=== PATIENT | female | born 1955 | race Caucasian/White ===

== ENCOUNTER 2017-03-28 08:30 | Inpatient (IN) | payer MEDICAID ==
[~2017-03-28 08:30] MED LIST: Cyanocobalamin (Vitamin B12) 1,000 MCG/ML SDV IM ONE; Glycopyrrolate 0.2 MG/ML 2 ML SYRINGE IVPUSH ONE; Lactated Ringers 1,000 ML IV SCH; Midazolam 1 MG/ML 2 ML SDV ONE; Propofol 200 MG/20 ML SDV ONE; fentaNYL 100 MCG/2 ML SDV ONE
[2017-03-28] MEDS ORDERED: MVI, Adult with Vitamin K 10 ML, Thiamine 200 MG, Chromium/Copper/Mang/Selen/Zn 1 ML in... IV ONE ×4 (08:45)
[2017-03-28] MEDS ORDERED: Ketorolac 60 MG/2 ML SDV ONE (09:41)
[2017-04-03] MEDS ORDERED: Propofol 200 MG/20 ML SDV ONE (11:25)
[2017-04-03] MEDS ORDERED: fentaNYL 100 MCG/2 ML SDV ONE (11:26)
[2017-04-03] MEDS ORDERED: Midazolam 1 MG/ML 2 ML SDV ONE (11:26)
[2017-04-03] MEDS ORDERED: Lactated Ringers 1,000 ML IV SCH (11:30)
[2017-04-03] MEDS ORDERED: Cyanocobalamin (Vitamin B12) 1,000 MCG/ML SDV IM ONE (12:00)
[2017-04-03] MEDS ORDERED: Glycopyrrolate 0.2 MG/ML 2 ML SYRINGE IVPUSH ONE (12:00)
[2017-04-03] MEDS: MVI, Adult with Vitamin K 10 ML, Thiamine 200 MG, Chromium/Copper/Mang/Selen/Zn 1 ML in... IV ONE ×8 (12:45)
[2017-04-03] MEDS ORDERED: 50% Dextrose in Water 50 ML Syringe IVPUSH PRN (13:59)
[2017-04-03] MEDS ORDERED: Insulin Aspart 100 Units/ML 3 ML Pen SUBCUT PRN (13:59)
[2017-04-03] MEDS ORDERED: Glucagon,Human Recombinant 1 MG Vial IM PRN (13:59)
[2017-04-03] MEDS ORDERED: Glucose Gel 15 GM in 37.5 GM Tube PO PRN (13:59)
[2017-04-03] MEDS ORDERED: Pantoprazole 40 MG Vial IV SCH (15:00)
[2017-04-03] MEDS: Acetaminophen 325 MG Tab PO PRN ×2 (16:19→20:29)
[2017-04-03] MEDS: metFORMIN 500 MG Tab PO SCH (16:28)
[2017-04-03] MEDS: Dextrose 5%-Lactated Ringers 1,000 ML IV SCH (18:26)
[2017-04-03] MEDS ORDERED: Insulin Detemir 100 Units/ML 3 ML Pen SUBCUT SCH (21:00)
[2017-04-04] MEDS: Dextrose 5%-Lactated Ringers 1,000 ML IV SCH (05:57)
[2017-04-04] MEDS ORDERED: Bupivacaine 0.5%/EPINEPHrine 1:200,000 50 ML MDV ONE (06:46)
[2017-04-04] MEDS ORDERED: Levothyroxine 112 MCG Tab PO SCH (07:30)
[2017-04-04] MEDS ORDERED: Scopolamine 1.5 MG Transdermal Patch TRDERM SCH (08:00)
[2017-04-04] MEDS ORDERED: Lidocaine 0.4%/D5W 2 GM/500 ML BAG IV SCH (08:30)
[2017-04-04] MEDS: metFORMIN 500 MG Tab PO SCH (08:38)
[2017-04-04] MEDS ORDERED: cefOXitin 2 GM in Sodium Chloride 0.9% 50 ML IV ONE (09:00)
[2017-04-04] MEDS ORDERED: Furosemide 20 MG Tab PO SCH (09:00)
[2017-04-04] MEDS ORDERED: fentaNYL 250 MCG/5 ML SDV ONE (09:11)
[2017-04-04] MEDS ORDERED: Dexamethasone 4 MG/ML SDV ONE (09:12)
[2017-04-04] MEDS ORDERED: Rocuronium 50 MG/5 ML Vial ONE (09:12)
[2017-04-04] MEDS ORDERED: Neostigmine Methylsulfate 1 MG/ML 5 ML Syringe ONE (09:12)
[2017-04-04] MEDS ORDERED: Propofol 200 MG/20 ML SDV ONE (09:12)
[2017-04-04] MEDS ORDERED: Ondansetron 4 MG/2 ML SDV ONE (09:12)
[2017-04-04] MEDS ORDERED: Succinylcholine/Normal Saline 200 MG/10 ML Syringe ONE (09:12)
[2017-04-04] MEDS ORDERED: Gabapentin 300 MG Cap PO ONE (10:00)
[2017-04-04] MEDS ORDERED: Celecoxib 200 MG Cap PO ONE (10:00)
[2017-04-04] MEDS ORDERED: Acetaminophen 325 MG Tab PO ONE (10:00)
[2017-04-04 10:30] VITALS: BP 136/82
--- NOTE | 2017-04-04 10:36 | PCM.HP ---
H&P History of Present Illness - General Date of Service: 04/04/17 Admit Problem/Dx: Admission Diagnosis/Problem Admission Diagnosis/Problem Small bowel obstruction Source of Information: Patient - History of Present Illness Initial Comments - Free Text/Narative: Mariah had an EGD today for a history of waking up with gastric reflux and bile coming out of her nose. She states this has gotten a little bit better after starting the Protonix. She was admitted for a partial small bowel obstruction. Improves with: Reports: None Associated Symptoms: Reports: Cough - Related Data Allergies/Adverse Reactions: Allergies Allergy/AdvReac Type Severity Reaction Status Date / Time codeine Allergy Rash Verified 04/03/17 10:58 cyclobenzaprine HCl Allergy Rash Verified 04/03/17 10:58 [From Flexeril] diphenhydramine HCl Allergy Rash Verified 04/03/17 10:58 [From Benadryl] hydrocodone Allergy Rash Verified 04/03/17 10:58 ibuprofen [From Motrin] Allergy Swelling Verified 04/03/17 10:58 morphine Allergy Rash Verified 04/03/17 10:58 orphenadrine citrate Allergy Rash Verified 04/03/17 10:58 [From Norflex] Home Medications: Home Meds Acetaminophen [Tylenol] 325 mg PO Q4H PRN 03/07/14 [History] Calcium Carb & Citrate/Vit D3 [Calcium + Vitamin D3 Caplet] 1 each PO BID [History] Cyanocobalamin (Vitamin B-12) [Vitamin B-12] 1,000 mcg PO DAILY 03/07/14 [ History] Furosemide [Lasix] 40 mg PO DAILY PRN 03/07/14 [History] Levothyroxine Sodium [Tirosint] 125 mcg PO DAILY 03/07/14 [History] Loratadine [Claritin] 10 mg PO DAILY PRN 03/07/14 [History] Multivitamin with Minerals [Multiple Vitamin] 1 tab PO BID 03/07/14 [History] Olopatadine [Patanol 0.1% Ophth Soln] 1 drop EYEBOTH BID PRN 03/07/14 [History] Simvastatin [Zocor] 40 mg PO DAILY 03/07/14 [History] Vitamin B Complex [B Complex] 1 dose PO DAILY 03/07/14 [History] Insulin Glarg,Human.Rec.Analog [Lantus] 10 units SUBCUT DAILY 04/07/14 [History] metFORMIN [Glucophage] 250 mg PO DAILY 04/07/14 [History] Pantoprazole 20 mg PO ACBREAKFAST 04/03/17 [History] Past Medical History Other Cardiovascular History: betablocker toxicity Gastrointestinal History: Reports: GERD Genitourinary History: Reports: Pyelonephritis Musculoskeletal History: Reports: Arthritis, Neck Pain, Chronic Endocrine/Metabolic History: Reports: Diabetes, Type II, Hypothyroidism - Past Surgical History Cardiovascular Surgical History: Reports: Other (see below) Other Cardiovascular Surgeries/Procedures: angiogram GI Surgical History: Reports: Bariatric procedure, EGD, Esophageal dilatation, Other (see below) Other GI Surgeries/Procedures: panniculectomy Endocrine Surgical History: Reports: None Musculoskeletal Surgical History: Reports: Arthroscopic knee Social & Family History - Tobacco Use Smoking Status *Q: Former Smoker Years of Tobacco use: 20 Used Tobacco, but Quit: Yes Month Tobacco Last Used: Second Hand Smoke Exposure: No - Caffeine Use Caffeine Use: Reports: None - Alcohol Use Days Per Week of Alcohol Use: 0 - Recreational Drug Use Recreational Drug Use: No Exam - Vital Signs Vital Signs: Last Vital Signs Temp 98.1 F 04/04/17 07:00 Pulse 65 04/04/17 07:00 Resp 18 04/04/17 07:00 BP 143/92 H 04/04/17 07:00 Pulse Ox 97 04/04/17 07:00 Weight: 155 lb - Patient Data Lab Results last 24 hrs: Laboratory Results - last 24 hr 04/03/17 04/03/17 04/03/17 Range/Units 14:00 14:00 14:00 WBC 5.6 (4.5-11.0) K/uL RBC 4.50 (3.30-5.50) M/uL Hgb 12.9 (12.0-15.0) g/dL Hct 40.1 (36.0-48.0) % MCV 89 (80-98) fL MCH 29 (27-31) pg MCHC 32 (32-36) % Plt Count 297 (150-400) K/uL Sodium 143 (140-148) mmol/L Potassium 4.0 (3.6-5.2) mmol/L Chloride 104 (100-108) mmol/L Carbon Dioxide 29 (21-32) mmol/L Anion Gap 9.9 (5.0-14.0) mmol/L BUN 14 (7-18) mg/dL Creatinine 0.7 (0.6-1.0) mg/dL Est Cr Clr Drug Dosing 78.01 mL/min Estimated GFR (MDRD) > 60 (>60) Glucose 80 (74-106) mg/dL Hemoglobin A1c 6.5 H (4.5-6.2) % Calcium 8.3 L (8.5-10.1) mg/dL Phosphorus 4.4 (2.5-4.9) mg/dL Magnesium 1.8 (1.8-2.4) mg/dL Total Bilirubin 0.4 (0.2-1.0) mg/dL AST 23 (15-37) U/L ALT 29 (12-78) U/L Alkaline Phosphatase 64 (46-116) U/L Total Protein 6.7 (6.4-8.2) g/dL Albumin 3.6 (3.4-5.0) g/dL Globulin 3.1 (2.3-3.5) g/dL Albumin/Globulin Ratio 1.2 (1.2-2.2) TSH, Ultra Sensitive 0.491 (0.358-3.740) uIU/mL Result Diagrams: 04/03/17 14:00 04/03/17 14:00 *Q Meaningful Use (ADM) - VTE *Q VTE Criteria *Q: - Stroke *Q Stroke Criteria *Q: - AMI *Q AMI Criteria *Q: Orders Last 24hrs: Active Orders 24 hr Category Date Time Status Patient Status [ADT] Routine ADT 04/03/17 12:35 Active Ambulate [RC] QID Care 04/03/17 13:28 Active RT Incentive Spirometry [RC] ASDIRECTED Care 04/03/17 13:28 Active Up to Chair [RC] QID Care 04/03/17 13:28 Active Verify Patient Consent Obtain [RC] ASDIRECTED Care 04/03/17 13:28 Active Bariatric Diet [DIET] Diet 04/03/17 Lunch Active Nothing per Oral After Midnight Diet [DIET] Diet 04/04/17 Dinner Active ANGELA TEST [RM] Routine Lab 04/03/17 11:57 Received GLUCOSE POC LAB TO COLLECT [POC] QIDACANDBED Lab 04/04/17 11:30 Ordered GLUCOSE POC LAB TO COLLECT [POC] QIDACANDBED Lab 04/04/17 16:30 Ordered GLUCOSE POC LAB TO COLLECT [POC] QIDACANDBED Lab 04/04/17 21:00 Ordered GLUCOSE POC LAB TO COLLECT [POC] QIDACANDBED Lab 04/05/17 07:30 Ordered GLUCOSE POC LAB TO COLLECT [POC] QIDACANDBED Lab 04/05/17 11:30 Ordered GLUCOSE POC LAB TO COLLECT [POC] QIDACANDBED Lab 04/05/17 16:30 Ordered GLUCOSE POC LAB TO COLLECT [POC] QIDACANDBED Lab 04/05/17 21:00 Ordered GLUCOSE POC LAB TO COLLECT [POC] QIDACANDBED Lab 04/06/17 07:30 Ordered GLUCOSE POC LAB TO COLLECT [POC] QIDACANDBED Lab 04/06/17 11:30 Ordered GLUCOSE POC LAB TO COLLECT [POC] QIDACANDBED Lab 04/06/17 16:30 Ordered GLUCOSE POC LAB TO COLLECT [POC] QIDACANDBED Lab 04/06/17 21:00 Ordered GLUCOSE POC LAB TO COLLECT [POC] QIDACANDBED Lab 04/07/17 07:30 Ordered GLUCOSE POC LAB TO COLLECT [POC] QIDACANDBED Lab 04/07/17 11:30 Ordered GLUCOSE POC LAB TO COLLECT [POC] QIDACANDBED Lab 04/07/17 16:30 Ordered GLUCOSE POC LAB TO COLLECT [POC] QIDACANDBED Lab 04/07/17 21:00 Ordered Acetaminophen [Tylenol] Med 04/03/17 16:13 Active 650 mg PO Q4H PRN Dextrose 5%-Lactated Ringers 1,000 ml Med 04/03/17 14:00 Active IV ASDIRECTED Dextrose 50% in Water Med 04/03/17 13:59 Active 50 ml IVPUSH ASDIRECTED PRN Dextrose [Glutose 15] Med 04/03/17 13:59 Active 15 gm PO ASDIRECTED PRN Furosemide [Lasix] Med 04/04/17 09:00 Hold 20 mg PO DAILY Glucagon,Human Recombinant [GlucaGen] Med 04/03/17 13:59 Active 1 mg IM ASDIRECTED PRN Insulin Aspart [NovoLOG] Med 04/03/17 13:59 Active 0 - 5 unit SUBCUT QID PRN Ketamine [Ketalar] Med 04/04/17 11:00 Active 30 mg IV ASDIRECTED Ketamine [Ketalar] 100 mg Med 04/04/17 11:00 Active Sodium Chloride 0.9% [Normal Saline] 99 ml IV ASDIRECTED Levothyroxine Med 04/04/17 07:30 Active 112 mcg PO ACBREAKFAST Lidocaine 0.4%/D5W [Lidocaine 2 GM/D5W 500 ML] Med 04/04/17 08:30 Active 2 gm in 500 ml IV 2 mg/min Lidocaine 2% [Xylocaine 2%] Med 04/04/17 12:00 Once 95 mg IVPUSH ONETIME ONE Non-Formulary Medication [NF Drug] Med 04/04/17 16:00 Active 1 each TOP DAILY Pantoprazole [ProTONIX IV] Med 04/03/17 15:00 Active 40 mg IV Q24H Ropivacaine [Naropin 0.5%] 35 ml Med 04/04/17 11:00 Active Dexamethasone 8 mg EPINEPHrine [Adrenalin 1:1000] 0.4 mg Sodium Chloride 0.9% [Normal Saline] 42.6 ml NERVRT ASDIRECTED Scopolamine [Transderm-Scop] Med 04/04/17 08:00 Active 1.5 mg TRDERM Q72H metFORMIN [Glucophage] Med 04/03/17 17:00 Active 250 mg PO BIDMEALS Sequential Compression Device [OM.PC] Routine Oth 04/03/17 13:28 Ordered Medication Orders Acetaminophen (Tylenol) 650 mg PO Q4H PRN PRN Reason: Headache/Pain Last Admin: 04/03/17 20:29 Dose: 650 mg Admin: 04/03/17 16:19 Dose: 650 mg Ropivacaine 35 ml/Dexamethasone 8 mg/Epinephrine HCl 0.4 mg/ Sodium Chloride 42.6 ml 0 ml NERVRT ASDIRECTED RUBIA Dextrose (Glutose 15) 15 gm PO ASDIRECTED PRN PRN Reason: HYPOGLYCEMIA Dextrose/Water (Dextrose 50% In Water) 50 ml IVPUSH ASDIRECTED PRN PRN Reason: HYPOGLYCEMIA Furosemide (Lasix) 20 mg PO DAILY RUBIA Glucagon (Glucagen) 1 mg IM ASDIRECTED PRN PRN Reason: HYPOGLYCEMIA Dextrose/Lactated Ringer's (Dextrose 5%-Lactated Ringers) 1,000 mls @ 100 mls/ hr IV ASDIRECTED RUBIA Last Admin: 04/04/17 05:57 Dose: 100 mls/hr Infusion: 04/04/17 04:26 Dose: 100 mls/hr Admin: 04/03/17 18:26 Dose: 100 mls/hr Lidocaine HCl/Dextrose (Lidocaine 2 Gm/D5w 500 Ml) 2 gm in 500 mls @ 30 mls/hr IV .[id number] [facility] PRN Reason: 2 MG/MIN Ketamine HCl 100 mg/ Sodium (Chloride) 100 mls @ 17.7 mls/hr IV ASDIRECTED [facility] PRN Reason: 5 MCG/KG/MIN Stop: 04/04/17 16:00 Insulin Aspart (Novolog) 0 - 5 unit SUBCUT QID PRN; Protocol PRN Reason: LOW CORRECTIONAL DOSE Ketamine HCl (Ketalar) 30 mg IV ASDIRECTED [facility] Levothyroxine Sodium (Levothyroxine) 112 mcg PO ACBREAKFAST [facility] Last Admin: 04/04/17 08:35 Dose: 112 mcg Lidocaine HCl (Xylocaine 2%) 95 mg IVPUSH ONETIME ONE Stop: 04/04/17 12:01 Metformin HCl (Glucophage) 250 mg PO BIDMEALS [facility] Last Admin: 04/04/17 08:38 Dose: Admin: 04/03/17 16:28 Dose: 250 mg Check Scopolamine (Patch) 1 each TOP DAILY [facility] Pantoprazole Sodium (Protonix Iv) 40 mg IV Q24H [facility] Last Admin: 04/03/17 16:27 Dose: 40 mg Scopolamine (Transderm-Scop) 1.5 mg TRDERM Q72H [facility] Last Admin: 04/04/17 09:04 Dose: 1.5 mg
[2017-04-04] MEDS ORDERED: Ropivacaine 35 ML, Dexamethasone 8 MG, EPINEPHrine 0.4 MG, Sodium Chloride 0.9% 42.6 ML NERVRT SCH ×4 (11:00)
[2017-04-04] MEDS ORDERED: Ketamine 500 MG/5 ML MDV IV SCH (11:00)
[2017-04-04] MEDS ORDERED: Lidocaine 2% 100 MG/5 ML Syringe IVPUSH ONE (12:00)
--- NOTE | 2017-04-04 13:41 | HP ---
HISTORY OF PRESENT ILLNESS: Mariah was admitted to the hospital following an EGD for partial small bowel obstruction. She has been having heartburn that wakes her up around 3 a.m., and she states she has acid coming out of her nose. She was taking Maalox and, at her last appointment, she was started on Protonix, which has helped she states "a little bit." Unable to take vitamins and drink water because of the bad taste it gives and also with the reflux, she has a metal taste in her mouth. She was admitted, as stated, after an EGD. CURRENT MEDICATIONS: See EMR. PAST MEDICAL HISTORY: Asthma, back pain, diabetes mellitus, diastolic dysfunction, edema, GERD, hypertension, hyperlipidemia, joint pain, and sleep apnea. PAST SURGICAL HISTORY: Laparoscopic Alexa-en-Y gastric bypass surgery on 03/08/2014, consult weight 310.8 and today's weight is 155 pounds, BMI of 25; lipectomy; abdominal panniculectomy and excision of right upper quadrant accessory nipple on 08/19/2016; and she had several EGDs. FAMILY HISTORY: Positive for heart disease, arthritis, and hypertension. SOCIAL HISTORY: She is , retired, and has no children. She does not smoke. Alcohol, none. Step-4 gastric bypass diet. Denies any carbonation or caffeine. ACTIVE PROBLEM LIST: Joint pain, GERD, diabetes mellitus, edema, shortness of breath, hypertension, hyperlipidemia, sleep apnea, asthma, back pain, and joint pain. REVIEW OF SYSTEMS: CONSTITUTIONAL: Denies any fever, chills, or night sweats. SKIN: Negative for rash or pigment changes, changes in moles or birthmarks. HEENT: Negative. Denies any headache, ear pain, or hearing loss. She does get injections in her eyes for diabetic retinopathy. CARDIOVASCULAR: Has had some testing done for a low pulse and low blood pressure. She recently saw grey percher. RESPIRATORY: No cough or shortness of breath. ENDOCRINE: Blood sugars have been regular. LYMPH NODES: Denies any lymph nodes. GI: Negative. : No change in urination or blood in urine. MUSCULOSKELETAL: No joint pain or swelling. NEUROLOGIC: No headaches, dizziness, or loss of coordination. PSYCHIATRIC: Negative for anxiety and depression. Remainder of review of systems negative for any pertinent positives and negatives. PHYSICAL EXAMINATION: GENERAL: Mariah is a 61-year-old female. VITAL SIGNS: Height is 5 feet 6 inches. Weight is 155 pounds. TPR is 98.1, 65, 18, blood pressure 143/92. HEENT: Negative. NECK: Supple. HEART: Regular rate and rhythm. LUNGS: Clear. ABDOMEN: Minimal midepigastric abdominal pain. EXTREMITIES: Without peripheral edema. NEURO: Cranial nerves II-XII intact. MUSCULOSKELETAL: Equal muscle strength in upper and lower extremities. PSYCHIATRIC: Mood and affect appropriate. Orientated x3 and memory intact. ASSESSMENT: 1. Partial small bowel obstruction. 2. Gastroesophageal reflux disease. 3. Alexa-en-Y gastric bypass surgery. 4. Unspecified surgical malabsorption. 5. B12 deficiency. 6. Vitamin D deficiency. 7. Postoperative malabsorption. 8. Weight loss. 9. Diabetes type 2. 10.Asthma. 11.Back pain. 12.Diastolic dysfunction. 13.Hypertension. 14.Hyperlipidemia. PLAN: 1. To schedule laparoscopic possible laparotomy for partial small bowel obstruction. Case to follow. Dr. Gilbert Hawkins consulted with the patient and had discussion of possible risks and possible complications. She wished to proceed with surgical procedure, to remain n.p.o. 2. Admission as inpatient. Possible hospital stay, including last night, would be 2 to 3 nights and 4 days. Trupti Oswald PA-C /[id number]
[2017-04-04] MEDS ORDERED: CHECK SCOPOLAMINE PATCH TOP SCH (16:00)
--- NOTE | 2017-04-05 00:14 | DISCH ---
ADMISSION DIAGNOSES: Gastroesophageal reflux disease, EGD with dilatation, anatomic stricture of esophageal jejunostomy, diabetes mellitus, edema, shortness of breath, hypertension, hyperlipidemia, sleep apnea, asthma, back pain, joint pain, status post Alexa- en-Y gastric bypass surgery, unspecified surgical malabsorption, B12 deficiency. DISCHARGE DIAGNOSES: Status post esophagogastroduodenoscopy, gastroesophageal reflux disease, gastric reflux disease, partial small bowel obstruction. HISTORY: Mariah Jackson is a 61-year-old female who reported severe GERD where she was waking up with heartburn around 3:00 a.m., and states she had acid coming out of her nose. She had an EGD and was scheduled to have a laparoscopic possible laparotomy for partial small bowel obstruction. She chose to be discharged today to think about it and maybe get a 2nd opinion. She would like to continue with medical management, and if things get worse, come back. HOSPITAL COURSE: Mariah had her EGD on 03/04/2017 and she was discharged on 03/05/2017 without any complications. Vital signs were stable. Activity good. Intake adequate. REVIEW OF SYSTEMS: HEENT: Negative. NECK: Negative. HEART: No chest pain, shortness of breath, fast or irregular heart beat. LUNGS: No cough. ABDOMEN: As above. No nausea or known diarrhea, constipation, red or black stools. EXTREMITIES: Negative. NEURO: Negative for any headaches, dizziness, loss of coordination. SKIN: Without rash. ENDOCRINE: Blood sugars have been running within normal limits. MUSCULOSKELETAL: No joint pain or swelling. Remainder of review of systems negative for any pertinent positives or negatives. OBJECTIVE: GENERAL: Mariah is a 61-year-old female. VITAL SIGNS: Height is 5 feet 6 inches. Weight is 155 pounds. TPR is 98.7, 63, 18. Blood pressure 136/82. HEENT: Negative. NECK: Supple. HEART: Regular rate and rhythm. LUNGS: Clear. ABDOMEN: Soft. There is mid-epigastric tenderness. EXTREMITIES: Without peripheral edema. NEURO: Intact. SKIN: Without rash. DISPOSITION: Discharged to home. CONDITION: Stable and improving. FOLLOWUP: With Trupti Oswald PA-C, on 04/22/2017 at 11:00 a.m. at [facility], [place], [facility]. NEW PRESCRIPTION: Carafate 1 g p.o. before meals and at bedtime for 1 month. Continue the same home medication. DIET: Usual diet as tolerated. Drink 8 to 10 glasses of water a day. ACTIVITY: As tolerated. May shower. Notify provider if any fever or any increased pain, nausea, or vomiting.
--- NOTE | 2017-04-07 16:36 | OR ---
DATE OF PROCEDURE: 04/03/2017 PREOPERATIVE DIAGNOSIS: History of bilious regurgitation. POSTOPERATIVE DIAGNOSES: History of bilious regurgitation with: 1. Elongated blind limb of Alexa-en-Y gastric bypass potentially the site for food retention. 2. No obvious bilious material within the Alexa limb or distal esophagus. OPERATIVE PROCEDURE: Upper GI endoscopy with biopsy of the gastric pouch for CLOtest. ANESTHESIA: IV sedation. INDICATION FOR PROCEDURE: This is a 61-year-old status post Alexa-en-Y gastric bypass, presenting with a history of bilious regurgitation, states particularly at night when she is lying down. Bilious-type fluid comes up sometimes it will be coming out of her nose and the patient had been started as Protonix orally, was felt to be helpful somewhat from symptomatic standpoint. The plan is to proceed with upper GI endoscopy with biopsies and/or dilation as indicated. Potential risks including bleeding and perforation were discussed, and the patient wishes to proceed. DETAILS OF THE PROCEDURE: The patient was taken to the operating room and placed in a left lateral decubitus position. IV sedation was administered, after which the upper GI endoscope was passed orally through the length of the esophagus and into the gastric pouch and from there roughly 30 cm into the Alexa limb. FINDINGS: Included a normal hypopharynx, larynx, upper esophageal sphincter, and esophageal body at the EG junction. There was no abnormality noted per say. The catheter had mild diffuse pouch gastritis that being somewhat reddened. The search for any gastrogastric fistula showed none to be present. The gastrojejunostomy was widely patent without significant inflammation. The patient did have a somewhat longer than usual blind end of the Alexa limb. It was then at this point is not containing foods, it fairly could be the area that might harbor some retained food that could potentially result in regurgitation when the patient assumes a supine position. Otherwise, the scope was passed roughly 30 cm into the Alexa limb. No bile was noted at any point of the exam and the patient's history is somewhat difficult to explain based on the findings. Biopsies were obtained from the gastric pouch, sent for CLOtest for H. pylori. Minimal bleeding from the biopsy sites was seen and the procedure was then concluded. After discussion, the patient would like to proceed with a diagnostic laparoscopy tomorrow. It was possible dealing with some of the food getting within the divided Alexa limb, that would be trend down more or less, flushed with the gastrojejunostomy. Then we looked for any signs of adhesions that might be contributing to some bile backup. This situation when this occurs in the postprandial period when there is increased bile output. The patient will be admitted overnight for rehydration and plan to proceed with surgical intervention tomorrow. Gilbert Hawkins MD /[id number]
== END 2017-04-04 14:00 | disposition home or self-care (01) | DRG 392 ==
LOC: JP.SDSSCHI 04-03 10:40 → JP.SDS 04-03 10:40 → EDSTATUS 04-03 12:00 → JP.MS 04-03 12:35
PROVIDERS: ADMIT Surgery; ATTEND Surgery
PROC: 0DB68ZX Excision of Stomach, Via Natural or Artificial Opening Endoscopic, Diagnostic (ICD-10-PCS; principal; 2017-04-03)
DX: K21.9 Gastro-esophageal reflux disease without esophagitis (principal); K56.60 Unspecified intestinal obstruction; K91.2 Postsurgical malabsorption, not elsewhere classified; E11.9 Type 2 diabetes mellitus without complications; R60.0 Localized edema; I10 Essential (primary) hypertension; E78.5 Hyperlipidemia, unspecified; G47.33 Obstructive sleep apnea (adult) (pediatric); Z98.84 Bariatric surgery status; J45.909 Unspecified asthma, uncomplicated; E53.8 Deficiency of other specified B group vitamins; E55.9 Vitamin D deficiency, unspecified; M54.9 Dorsalgia, unspecified; R11.14 Bilious vomiting; Z79.84 Long term (current) use of oral hypoglycemic drugs
CPT/HCPCS: 36415; 80053; 82962; 83036; 83735; 84100; 84443; 85027; 87081; A9270-GY; C9113; J1100; J1885; J2250; J2405; J2704; J3010; J3411; J3420; J7042; J7120